=== PATIENT | female | born 1980 | race Caucasian/White ===

== ENCOUNTER 2020-04-08 18:35 | Emergency (ER) | payer BC, OTHER ==
[~2020-04-08] VITALS: Ht 162.6 cm; Wt 74.0 kg
[2020-04-08] MEDS ORDERED: SILVER SULFADIAZINE 1% CREAM 25GM TOP ONE (19:30)
[2020-04-08] MEDS ORDERED: IBUPROFEN 600MG TABLET PO ONE (19:30)
[2020-04-08 20:10] VITALS: BP 133/86
== END 2020-04-08 20:13 | disposition home or self-care (01) ==
LOC: ER 18:35
DX: T23.101A Burn of first degree of right hand, unspecified site, initial encounter (principal); X10.2XXA Contact with fats and cooking oils, initial encounter; Y93.G3 Activity, cooking and baking; Y92.9 Unspecified place or not applicable; Z88.6 Allergy status to analgesic agent; Z90.49 Acquired absence of other specified parts of digestive tract
CPT/HCPCS: 99283

== ENCOUNTER 2025-01-09 13:57 | Emergency (ER) | payer BC ==
[~2025-01-09] VITALS: Ht 167.6 cm; Wt 73.0 kg
[2025-01-09 14:03] VITALS: PULSE 125; RESP 14; O2SAT 99
[2025-01-09 14:06] VITALS: BP 149/86; TEMP 37.1; O2SAT 100
[2025-01-09] MEDS ORDERED: IBUPROFEN 100MG/5ML UDC PO ONE (14:30)
[2025-01-09] MEDS: VISCOUS LIDOCAINE 2% 15 ML UDC MM STA (14:55)
== END 2025-01-09 15:18 | disposition home or self-care (01) ==
LOC: ER 14:08
DX: T18.9XXA Foreign body of alimentary tract, part unspecified, initial encounter (principal); Z88.6 Allergy status to analgesic agent; Z90.49 Acquired absence of other specified parts of digestive tract; W44.9XXA Unspecified foreign body entering into or through a natural orifice, initial encounter; Y93.89 Activity, other specified; Y92.89 Other specified places as the place of occurrence of the external cause; Y99.8 Other external cause status
CPT/HCPCS: 30300; 42809; 99284